=== PATIENT | male | born 1990 | race Caucasian/White ===

== ENCOUNTER 2023-05-24 05:25 | Day surgery (SDC) | payer OTHER ==
[~2023-05-24] VITALS: Ht 180.3 cm; Wt 68.0 kg
== END 2023-05-24 12:20 | disposition home or self-care (01) ==
LOC: CIR.AMB 05:25
PROVIDERS: ATTEND Otolaryngology
DX: D37.05 Neoplasm of uncertain behavior of pharynx (principal); Z20.822 Contact with and (suspected) exposure to COVID-19